=== PATIENT | female | born 1945 | race Caucasian/White ===

== ENCOUNTER → 2018-11-04 | Day surgery (SDC) | payer MEDICARE, BC ==
[~2018-11-04] MED LIST: DIOVAN HCT 80-1 EACH PO; HYOSCYAMINE 0.125 MG TAB ONE; LEVOTHYROXINE88 MCG PO; LIDOCAINE HCL 2% LOCAL INJ 5 ML SDV VIAL INJ ONE; LIPITOR10 MG PO; MIDAZOLAM HCL 2 MG/2 ML VIAL ONE; PROPOFOL IV EMULSION 10 MG/ML 50 ML VIAL ONE
[2018-11-04 10:35] VITALS: BP 115/51
--- NOTE | 2018-11-04 14:52 | Operative Report ---
DATE OF PROCEDURE: 11/04/2018 SURGEON: Yamil Turner MD PROCEDURE: Colonoscopy and polypectomy note. INDICATIONS FOR COLONOSCOPY: Colorectal cancer screening. MEDICATION: The patient was done under MAC, please see anesthesiologist's note. PROCEDURE IN DETAIL: With the patient in left lateral decubitus position, the flexible fiberoptic Olympus colonoscope was inserted into the rectum with ease and advanced all the way to the cecum. It was then withdrawn slowly and mucosa overlying the cecum, ascending colon, transverse colon, and descending colon grossly appeared to be within normal limits. One polyp was hot biopsied from the sigmoid. The rectum appeared to be within normal limits. The scope was then retroflexed into the distal rectum and small internal hemorrhoids were noted, none of which was actively bleeding. The scope was then straightened out, it was subsequently withdrawn. The patient tolerated procedure well. IMPRESSION: 1. Sigmoid colon polyp, hot biopsied. 2. Internal hemorrhoids, none actively bleeding. PLAN: Follow up histology. Initiate high-fiber, low-fat diet. Initiate high-fiber supplement. Timing of followup colonoscopy if necessary pending pathology report. Yamil Turner MD [facility] [place] /[id number] cc: Titi Peterson DO
== END | disposition home or self-care (01) ==
LOC: OR 06:24
PROVIDERS: ATTEND Internal Medicine Gastroenterology
DX: Z12.11 Encounter for screening for malignant neoplasm of colon (principal); K63.5 Polyp of colon; K64.8 Other hemorrhoids; E03.9 Hypothyroidism, unspecified; E78.5 Hyperlipidemia, unspecified; R00.1 Bradycardia, unspecified; I10 Essential (primary) hypertension; Z72.0 Tobacco use; Z01.810 Encounter for preprocedural cardiovascular examination
CPT/HCPCS: 45384; 88305; 93005; J2001; J2250; J2704; 45378

== ENCOUNTER → 2019-02-11 | Outpatient (CLI) | payer MEDICARE, BC ==
[~2019-02-11] MED LIST changes: -HYOSCYAMINE 0.125 MG TAB ONE; -LIDOCAINE HCL 2% LOCAL INJ 5 ML SDV VIAL INJ ONE; -MIDAZOLAM HCL 2 MG/2 ML VIAL ONE; -PROPOFOL IV EMULSION 10 MG/ML 50 ML VIAL ONE
--- NOTE | 2019-02-11 15:22 | Diagnostic Imaging Report ---
Renal ultrasound, 02/11/2019. History: Chronic kidney disease. Discussion: Transverse and longitudinal images of the kidneys were obtained demonstrating normal renal sizes and echogenicities. There is no evidence of hydronephrosis, mass, or renal calculus. The right kidney measures 9.5 cm and the left kidney measures 9.5 cm in length. Renal cortex measures 1.0 and 1.5 cm respectively. The urinary bladder is unremarkable. Bilateral ureteral jets are identified. Bladder volume measures 177 mL. There is no evidence of free fluid. IMPRESSION: Normal renal ultrasound. Signed by: Isma Blanco on 02/11/2019 3:19 PM
== END ==
LOC: US 13:39
PROVIDERS: ATTEND Internal Medicine Nephrology
DX: N18.3 Chronic kidney disease, stage 3 (moderate) (principal)
CPT/HCPCS: 76770; 76857

== ENCOUNTER 2019-09-03 17:42 | Emergency (ER) | payer MEDICARE, BC ==
[~2019-09-03] VITALS: Ht 162.6 cm; Wt 70.3 kg
--- OUTSIDE RECORDS SUMMARY | 2019-09-03 17:53 | XMS REPORT ---
[facility] Address Unknown Phone Unavailable Care Team Providers Care Animal Sitter Name Role Phone JUANCARLOS SAWANT Unavailable Unavailable Problems This patient has no known problems. Allergies, Adverse Reactions, Alerts This patient has no known allergies or adverse reactions. Medications This patient has no known medications. Results Test Description Test Time Test Comments Text Results Atomic Results Result Comments US RENAL RETROPERITONEAL COMP 2019-02-11 15:19:00 [place] [address] Patient Name: SUSAN GREENE MR #: [id number] : 1945 Age/Sex: 73/F Req #: [id number] Adm Physician: Ordered by: JUANCARLOS SAWANT MD Report #: [id number] Location: Room/Bed: Procedure: [id number] US/US RENAL RETROPERITONEAL COMP Exam Date: 02/11/19 Exam Time: 1454 REPORT STATUS: Signed Renal ultrasound, 02/11/2019. History: Ch ronic kidney disease. Discussion: Transverse and longitudinal images of the kidneys were obtained demonstrating normal renal sizes and echogenicities. There is no evidence of hydronephrosis, mass, or renal calculus. The right kidney measures 9.5 cm and the left kidney measures 9.5 cm in length. Renal cortex measures 1.0 and 1.5 cm respectively. The urinary bladder is unremarkable. Bilateral ureteral jets are identified. Bladder volume measures 177 mL. There is no evidence of free fluid. IMPRESSION: Normal renal ultrasound. Signed by: Fito Blanco on 02/11/2019 3:19 PM Dictated By: FITO BLANCO MD 18 Transcribed By: WAYNE on 02/11/191518 COPY TO: JUANCARLOS SAWANT MD US PELVIC (NON OB) SHAFER OR F/U 2019-02-11 15:19:00 [place] [address] Patient Name: SUSAN GREENE MR #: [id number] : 1945 Age/Sex: 73/F Req #: [id number] Adm Physician: Ordered by: JUANCARLOS SAWANT MD Report #: [id number] Location: Room/Bed: Procedure: [id number] US/US PELVIC (NON OB) SHAFER OR F/U Exam Date: 02/11/19 Exam Time: 1454 REPORT STATUS: Signed Renal ultrasound, 02/11/2019. History: Ch ronic kidney disease. Discussion: Transverse and longitudinal images of the kidneys were obtained demonstrating normal renal sizes and echogenicities. There is no evidence of hydronephrosis, mass, or renal calculus. The right kidney measures 9.5 cm and the left kidney measures 9.5 cm in length. Renal cortex measures 1.0 and 1.5 cm respectively. The urinary bladder is unremarkable. Bilateral ureteral jets are identified. Bladder volume measures 177 mL. There is no evidence of free fluid. IMPRESSION: Normal renal ultrasound. Signed by: Fito Blanco on 02/11/2019 3:19 PM Dictated By: FITO BLANCO MD 1100 Transcribed By: WAYNE on 02/12/19 1100 COPY TO: JUANCARLOS SAWANT MD SCR MAMM BILATERAL LISA CAD DIGITAL 2019-01-19 16:45:18 - SCR MAMM BILATERAL LISA CAD DIGITALBILATERAL DIGITAL SCREENING MAMMOGRAM 3D/2D WITH CAD: 01/19/2019CLINICAL: Asymptomatic. Digital breast tomosynthesis was performed in addition to routine CC and MLO views. Current mammographic images were evaluated by either a [employer] M-Vu or a [employer] ImageChecker CAD (computer aided detection system). No prior exams were available for comparison. There are sca ttered fibroglandular tissues in both breasts. No suspicious mass, architectural distortion, malignant type calcification, or lymph node abnormality detected. Breast architecture is stable compared to prior exams.IMPRESSION: NEGATIVEThere is no mammographic evidence of malignancy. Resume annual screening mammography in one year. Dl Jackson M.D. ncg/:01/19/2019 16:45:18 [place] [facility]: [facility], [facility]-FWletter sent: BIRADS 1-2 Normal Mammogram BI-RADS: 1 Negative
[2019-09-03] MEDS ORDERED: FLUORESCEIN SOD(OPTH) 1 MG STRP OP ONE (18:30)
[2019-09-03] MEDS ORDERED: TETRACAINE HCL 0.5% OPTH SOLN 4 ML BTL OP ONE (18:30)
[2019-09-03] MEDS ORDERED: PREDNISONE20 MG PO (18:42)
[2019-09-03] MEDS ORDERED: VALTREX1000 MG PO (18:42)
[2019-09-03] MEDS ORDERED: GABAPENTIN100 MG PO (18:42)
[2019-09-03] MEDS ORDERED: TETRACAINE HCL 0.5% OPTH SOLN 4 ML BTL ONE (18:49)
[2019-09-03] MEDS ORDERED: FLUORESCEIN SOD(OPTH) 1 MG STRP ONE (18:50)
[2019-09-03 19:46] VITALS: BP 137/70
== END 2019-09-03 19:46 | disposition home or self-care (01) ==
LOC: FSED 17:42 → ER 19:46
DX: B02.9 Zoster without complications (principal)
CPT/HCPCS: 99283